=== PATIENT | female | born 1975 | race Caucasian/White ===

== ENCOUNTER → 2017-01-17 | Outpatient (CLI) | payer OTHER ==
--- NOTE | 2017-01-17 16:22 | RAD ---
Examination: Ultrasound pelvis History: History of heavy menses Comparison: None available Findings: The uterus measures 8.9 x 4.5 x 6.3 cm. The endometrium measures 1.6 cm in thickness. The right ovary measures 5.3 x 2.8 x 3.5 cm. The left ovary measures 3.8 x 2.5 x 2.2 cm. There is a cystic structure identified in the right ovary measuring 3.2 cm. Few nabothian cysts identified in the cervix. Impression: 1. 3.2 cm cyst identified in the right ovary. 2. Mild prominent appearing endometrium measuring 1.6 cm which is upper limits of normal. Correlate clinically.
== END | disposition home or self-care (01) ==
LOC: US 11:14
PROVIDERS: ATTEND Family Medicine
DX: N83.201 Unspecified ovarian cyst, right side (principal); N92.0 Excessive and frequent menstruation with regular cycle
CPT/HCPCS: 76830; 76856

== ENCOUNTER → 2017-02-12 | Outpatient (CLI) | payer OTHER ==
--- NOTE | 2017-02-12 10:17 | RAD ---
Exam performed: Pelvic Ultrasound. Indication: Headache menstrual bleeding for 40 days Date of Service: 02/12/17. Comparison: Pelvic ultrasound from 01/17/17 Technique: Transabdominal and transvaginal Findings: The uterus is anteverted and measures 9.5 x 6.2 x 5.4 cm. The endometrial stripe measures up to 11.7 mm. There is probably a 1. 41.5 x 1.4 cm fibroid in the left aspect of the myometrium. Multiple nabothian cysts are seen. Both ovaries are normal. The right ovary measures 4.2 x 3.3 x 3.0 cm , the left ovary measures 2.7 x 1.2 x 1.2 cm. Multiple cystic lesions are seen in the right ovary, largest measuring up to 2.5 x 2.5 x 2.5 cm. Impression: 1. Right ovarian cysts, likely physiological. 2. Probable uterine fibroid
== END | disposition home or self-care (01) ==
LOC: US 08:54
PROVIDERS: ATTEND Obstetrics & Gynecology
DX: N83.201 Unspecified ovarian cyst, right side (principal); N92.1 Excessive and frequent menstruation with irregular cycle; R51 Headache
CPT/HCPCS: 76830; 76856

== ENCOUNTER 2019-06-11 06:31 | Day surgery (SDC) | payer OTHER ==
[~2019-06-11] VITALS: Ht 160 cm; Wt 64.5 kg
[~2019-06-11 06:31] MED LIST: ACETAMINOPHEN 500 MG TABLET PO SCH
[2019-06-11] MEDS ORDERED: LIDOCAINE 1% PF 2 ML VIAL. ID PRN (07:00)
[2019-06-11] MEDS ORDERED: IV RINGERS,LACTATED 1000ML 1,000 ML IV SCH (07:00)
[2019-06-11] MEDS ORDERED: HYDROmorphone 2 MG/ML VIAL IV PRN (07:00)
[2019-06-11] MEDS ORDERED: MORPHINE SULFATE 2 MG/ML VIAL. IV PRN (07:00)
[2019-06-11] MEDS ORDERED: ONDANSETRON PF 4 MG/2 ML VIAL. IV PRN (07:00)
[2019-06-11] MEDS ORDERED: fentaNYL PF VIAL 100 MCG/2 ML VIAL IV PRN (07:00)
[2019-06-11] MEDS ORDERED: PROCHLORPERAZINE 10 MG/2 ML VIAL. IV PRN (07:00)
[2019-06-11] MEDS ORDERED: NORE-88 PO (07:05)
[2019-06-11] MEDS ORDERED: SURGICEL HEMOSTAT 4X8 EACH. ONE (07:12)
[2019-06-11] MEDS ORDERED: IOHEXOL 300 MG/ML 50 ML VIAL. ONE (07:12)
[2019-06-11] MEDS ORDERED: BUPIVACAINE-EPI 0.25%-1:200000 MPF 30 ML VIAL. ONE (07:12)
[2019-06-11] MEDS ORDERED: SUCCINYLCHOLINE 200 MG/10 ML VIAL. ONE (07:32)
[2019-06-11] MEDS ORDERED: fentaNYL PF VIAL 100 MCG/2 ML VIAL ONE (07:32)
[2019-06-11] MEDS ORDERED: PROPOFOL 20 ML IV ONE (07:32)
[2019-06-11] MEDS ORDERED: ROCURONIUM 50 MG/5 ML VIAL. ONE (07:32)
[2019-06-11] MEDS ORDERED: SCOPOLAMINE 1.5MG PATCH. TD ONE (07:57)
[2019-06-11] MEDS ORDERED: ONDANSETRON PF 4 MG/2 ML VIAL. ONE (08:01)
[2019-06-11] MEDS ORDERED: FAMOTIDINE 20 MG/2 ML VIAL ONE (08:01)
[2019-06-11] MEDS ORDERED: DEXAMETHASONE SOD PHOS 4 MG/ML VIAL ONE (08:01)
[2019-06-11] MEDS ORDERED: PHENYLEPHRINE in 0.9% NACL PF 1 MG/10 ML SYRINGE. IV ONE (08:10)
[2019-06-11] MEDS ORDERED: DESFLURANE 31 TO 60 MINUTES IH ONE (08:10)
[2019-06-11] MEDS ORDERED: NEOSTIGMINE METHYLSULFATE 5 MG/5 ML SYRINGE. ONE (08:13)
[2019-06-11] MEDS ORDERED: GLYCOPYRROLATE 1 MG/5 ML VIAL. ONE (08:14)
--- NOTE | 2019-06-11 08:21 | PDOC4 ---
Operative Note Operative Note Date: 06/11/2019 Preoperative diagnosis: Biliary dyskinesia Postoperative diagnosis: Same Procedure: Laparoscopic cholecystectomy Surgeon: Vincent Specimen: Gallbladder Dictation: Patient is a 43-year-old female is complained of right upper quadrant abdominal pain mostly postprandial she had a HIDA scan which showed ejection fraction of only 3%. Procedure of laparoscopic cholecystectomy was explained to the patient in detail risks benefits were also discussed including bleeding infection injury to intra-abdominal contents possibly necessitating further or open operations alternatives to this procedure also discussed with the patient who seemed to understand and gave both verbal and written consent had the procedure performed. Patient was taken to the operating room placed in supine position general anesthesia was initiated once patient was sleep and intubated her abdomen was prepped and draped usual sterile fashion using ChloraPrep. An area at the umbilicus was injected with quarter percent Marcaine with epinephrine incision was made with 11 blade scalpel varies needle was placed within the abdomen creating pneumoperitoneum once this was complete 11 mm port was placed and 5 mm camera was placed within the abdomen which was inspected no other abdomen maladies were noted. A 5 mm port was placed in the epigastrium a 5 mm port was placed in the right lateral abdomen and one in the right mid abdomen the dome of the gallbladder is grasped retracted cephalad the infundibulum of the gallbladder is grasped retracted laterally exposing the triangle. The adherent tissues of the triangle were taken down blunt dissection using [place] dissector. The cystic duct was visualized doubly clipped and transected the cystic artery was also clipped and transected the gallbladder is taken off the liver with a clot cautery placed in Endo Catch bag and removed from the umbilicus. Right upper quadrant was irrigated and suctioned dry hemostasis deemed to be appropriate and the pneumoperitoneum was reduced all ports removed the fascial defect at the umbilicus was closed with a [id number] 0 Vicryl suture and the skin was approximated all port sites for septic and a Monocryl Mastisol Steri-Strips and island dressings were applied. Patient was awakened and extubated in the operating room taken to recovery in stable condition all sponge instrument needle counts listed as correct estimated blood loss 10 mL. JIMMY SINGH MD Jun 11, 2019 08:21
--- NOTE | 2019-06-11 08:23 | DISCH ---
DISCHARGE INSTRUCTIONS Condition on Discharge Condition on Discharge: Stable Activity After Discharge Activity Instructions for Disc: Activity as tolerated Other activity instructions: no lifting more than 20 pounds for 2 weeks Diet after Discharge Diet after Discharge: Low Fat Wound Incision Care Other wound/incision instructi: May shower in 24 hours Contacting the after DC Call your doctor for: If your condition worsens Follow-Up Follow up with: Dr. Singh in 2 weeks JIMMY SINGH MD Jun 11, 2019 08:23
[2019-06-11] MEDS: fentaNYL PF VIAL 100 MCG/2 ML VIAL IV PRN ×2 (08:51→09:00)
[2019-06-11] MEDS ORDERED: OXYC-325 PO (08:53)
[2019-06-11] MEDS ORDERED: oxyCODONE/APAP 5/325 1 TAB TABLET PO ONE ×2 (09:00)
[2019-06-11 10:30] VITALS: BP 107/68
--- NOTE | 2019-06-12 16:06 | PATHOLOGY ---
[facility] Accession Number: [id number] . 01 Material submitted: . gallbladder - GALLBLADDER AND CONTENTS . 01 Clinical history: . Biliary dyskinesia. . 02 Diagnosis: Gallbladder, laparoscopic cholecystectomy: - Chronic cholecystitis. - Focal adenomyosis of gallbladder fundus. - Gallbladder neck lymph node showing no diagnostic abnormalities. (JPM:[facility] 06/12/2019) [facility] 06/12/2019 1408 Local . 02 Comment: There are no calculi identified within the gallbladder lumen or specimen container. There is no evidence of malignancy. (JPM:[facility] 06/12/2019) . . 02 Electronically signed: . Patric Orona MD, Pathologist NPI- [id number] . 01 Gross description: . Received in formalin labeled "Sweet, Minnie, gallbladder and contents" is an intact cholecystectomy specimen measuring 8.2 x 3.4 x 2.7 cm. The serosa is pink-newman and smooth. There is a possible lymph node measuring 0.5 cm adjacent to the cystic neck. There is a firm yellow-pink area on the fundus measuring 0.8 x 0.8 x 0.3 cm. The specimen is opened to reveal green-brown velvety mucosa without polyps or masses. The average wall thickness is 0.1 cm. Calculi are not present. Equine Dentist sections of the fundus and body and the cystic duct margin are submitted in A1. ([facility]; 06/11/2019) SYC/SYC 06/11/2019 1639 Local . 02 Pathologist provided ICD-10: K81.1 . 02 CPT . 866867 Specimen Comment: A courtesy copy of this report has been sent to [phone] Specimen Comment: [id number] Specimen Comment: Report sent to / DR ALEXANDRE Performed at: 01 [facility] [address], [place], [place] [id number] MD Santosh Davis MD Phone: [phone] Performed at: 02 [facility] [address], [place] [id number] MD Patric Orona MD Phone: [phone]
== END 2019-06-11 10:55 | disposition home or self-care (01) ==
LOC: SURG 06:31
PROVIDERS: ATTEND Surgery
DX: K82.8 Other specified diseases of gallbladder (principal); K81.1 Chronic cholecystitis; Z88.0 Allergy status to penicillin; Z79.899 Other long term (current) drug therapy
CPT/HCPCS: A7015; J0330; J0780; J1100; J1956; J2370; J2405; J2704; J2710; J3010; J3490; J7030; Q9967

== ENCOUNTER 2020-04-07 06:53 | Outpatient (CLI) | payer OTHER ==
[~2020-04-07] VITALS: Ht 160 cm; Wt 66.7 kg
[2020-04-07] VITALS (14 sets, daily range): BP systolic 98–130; BP diastolic 65–93
[~2020-04-07 06:53] MED LIST changes: -ACETAMINOPHEN 500 MG TABLET PO SCH; +NORE-88 PO; +OXYC-325 PO
[2020-04-07 08:03] LABS: BASO # 0.1 x10^3/uL (0.0-0.2); BASO % 1 % (0-3); EOS # 0.1 x10^3/uL (0.0-0.7); EOS % 1 % (0-3); HEMATOCRIT 39.4 % (36.0-47.0); HEMOGLOBIN 13.7 g/dL (12.0-15.5); LYMPH # 1.9 x10^3/uL (1.0-4.8); LYMPH % 25 % (24-48); MEAN CORPUSCULAR HEMOGLOBIN 31 pg (25-35); MEAN CORPUSCULAR HGB CONC 35 g/dL (31-37); MEAN CORPUSCULAR VOLUME 88 fL (79-100); MONO # 0.5 x10^3/uL (0.0-1.1); MONO % 6 % (0-9); NEUT # 5.2 x10^3/uL (1.8-7.7); NEUT % 67 % (31-73); PLATELET COUNT 238 x10^3/uL (140-400); RED BLOOD COUNT 4.47 x10^6/uL (3.50-5.40); RED CELL DISTRIBUTION WIDTH 12.1 % (11.5-14.5); WHITE BLOOD COUNT 7.7 x10^3/uL (4.0-11.0)
[2020-04-07] MEDS ORDERED: ATOR20TA58 PO (08:04)
[2020-04-07 08:11] LABS: CREATININE 0.8 mg/dL (0.6-1.0); GFR 77.6; POTASSIUM 3.7 mmol/L (3.5-5.1)
[2020-04-07] MEDS ORDERED: MIDAZOLAM HCL/PF 2 MG/2 ML VIAL. ONE (08:11)
[2020-04-07] MEDS ORDERED: fentaNYL PF VIAL 100 MCG/2 ML VIAL ONE (08:12)
[2020-04-07] MEDS ORDERED: fentaNYL PF VIAL 100 MCG/2 ML VIAL IV ONE (08:15)
[2020-04-07] MEDS ORDERED: LIDOCAINE WITH 8.4% SOD BICARB 3 ML DISP.SYRIN. IJ ONE (08:15)
[2020-04-07] MEDS ORDERED: GELATIN SPONGE SIZE 12-7MM SPONGE. TP ONE (08:15)
[2020-04-07] MEDS ORDERED: MIDAZOLAM HCL/PF 2 MG/2 ML VIAL. IV ONE (08:15)
[2020-04-07 08:16] LABS: PREG TEST PT QUAL NEGATIVE (NEG)
[2020-04-07 08:17] LABS: ALBUMIN 3.9 g/dL (3.4-5.0); TOTAL BILIRUBIN 0.5 mg/dL (0.2-1.0); TOTAL PROTEIN 7.9 g/dL (6.4-8.2)
[2020-04-07 08:33] LABS: PROTHROMBIN TIME PATIENT 12.8 SEC (11.7-14.0)
[2020-04-07] MEDS ORDERED: GELATIN SPONGE SIZE 12-7MM SPONGE. ONE (08:53)
[2020-04-07] MEDS ORDERED: LIDOCAINE WITH 8.4% SOD BICARB 3 ML DISP.SYRIN. ONE (08:53)
--- NOTE | 2020-04-07 10:26 | RAD ---
Ultrasound-guided biopsy, right liver 04/07/2020 INDICATION: Hepatic steatosis. Possible hepatitis C. Discussion: The procedure was explained in its entirety to the patient or the patients designated customer counter representative by a member of the treatment team, including a discussion of the risks, benefits and commonly accepted alternatives to the procedure, as well as the expected consequences of no therapy whatsoever. Discussion of the risks included, but was not limited to, those that are most frequent and those that are rare but possibly severe or life-threatening, as well as the possibility of unforeseen complications. All elements of maximal sterile barrier technique including the use of a cap, mask, sterile gown, sterile gloves, large sterile sheet, appropriate hand hygiene, and 2% chlorhexidine for cutaneous antisepsis (or acceptable alternative antiseptic per current guidelines) were followed for this procedure. Ultrasound evaluation demonstrates hepatic steatosis. Liver appears enlarged. The right liver was targeted for biopsy. 1% lidocaine was administered for local anesthesia. Under direct ultrasound guidance a 17-gauge needle was advanced into the right liver. Core biopsy samples were obtained. Gelfoam embolization of the tract was performed as a guiding needle was removed. Manual pressure was held. After several minutes repeat ultrasound demonstrated no significant perihepatic hemorrhage or other complication. Sterile dressings were applied. The procedures performed under conscious sedation including continuous cardiopulmonary monitoring via dedicated sedation nurse. [id number] sedation time: 30 minutes Impression: Ultrasound-guided liver biopsy.
--- NOTE | 2020-04-07 11:24 | NUR ---
Discharge Note: [facility] Discharge instructions and discharge home medications reviewed with Patient and a copy given. All questions have been answered and understanding verbalized. The following instructions and handouts were given: Moderate Sedation, biopsy after care. Discontinued peripheral IV, site intact, bandaid applied. Patient discharged to home with her spouse.
== END 2020-04-07 11:15 | disposition home or self-care (01) ==
LOC: INTRAD 06:53
PROVIDERS: ATTEND Surgery
DX: K75.9 Inflammatory liver disease, unspecified (principal); F41.9 Anxiety disorder, unspecified; E66.9 Obesity, unspecified; K21.9 Gastro-esophageal reflux disease without esophagitis; Z90.49 Acquired absence of other specified parts of digestive tract; Z98.890 Other specified postprocedural states; Z88.0 Allergy status to penicillin
CPT/HCPCS: 36415; 47000; 76942; 80053; 84703; 85025; 85610; 99152; 99153; J2250; J3010; J3490